=== PATIENT | female | born 1990 | race Two or more races ===

== ENCOUNTER 2021-04-09 02:17 | Emergency (ER) | payer OTHER ==
[~2021-04-09] VITALS: Ht 167.6 cm; Wt 77.1 kg
[2021-04-09] MEDS ORDERED: LEVSIN/SL0.125 MG SL ×2 (08:15→08:16)
[2021-04-09] MEDS ORDERED: ZOFRAN4 MG PO (08:15)
[2021-04-09] MEDS ORDERED: PEPCID40 MG PO (08:15)
== END 2021-04-09 08:24 | disposition home or self-care (01) ==
LOC: ER 02:17
DX: K29.70 Gastritis, unspecified, without bleeding (principal)